=== PATIENT | male | born 1970 | race African-American/Black ===

== ENCOUNTER 2021-04-20 01:35 | Emergency (ER) | payer BC ==
[~2021-04-20] VITALS: Ht 193 cm; Wt 127.0 kg
[2021-04-20] MEDS ORDERED: CEFTRIAXONE 1 GM VIAL IM ONE (01:45)
[2021-04-20] MEDS ORDERED: TRIMETHOPRIM/SULFAMETHOXAZOLE 160-800 MG TAB PO ONE (01:45)
[2021-04-20] MEDS ORDERED: TETANUS/DIPHTHERIA TOX ADULT 0.5 ML SYR IM ONE (01:45)
[2021-04-20] MEDS ORDERED: KETOROLAC TROMETHAMINE 30 MG/ML VIAL IM STA (01:45)
[2021-04-20] MEDS ORDERED: KETOROLAC TROMETHAMINE 60 MG/2 ML VIAL ONE (02:03)
[2021-04-20] MEDS ORDERED: CEFTRIAXONE 1 GM VIAL ONE (02:03)
[2021-04-20] MEDS ORDERED: TETANUS/DIPHTHERIA TOX ADULT 0.5 ML SYR ONE (02:03)
[2021-04-20] MEDS ORDERED: TRIMETHOPRIM/SULFAMETHOXAZOLE 160-800 MG TAB ONE (02:05)
[2021-04-20] MEDS ORDERED: CEPHALEXIN500 MG PO (03:03)
[2021-04-20] MEDS ORDERED: BACTRIM DS TAB1 EACH PO (03:03)
[2021-04-20] MEDS ORDERED: IBUPROFEN600 MG PO (03:03)
== END 2021-04-20 03:30 | disposition home or self-care (01) ==
LOC: FSED 01:40
DX: L03.031 Cellulitis of right toe (principal); M79.89 Other specified soft tissue disorders
CPT/HCPCS: 73660; 90471; 90714; 99283; J0696; J1885